=== PATIENT | male | born 1955 | race Caucasian/White ===

== ENCOUNTER 2018-10-23 12:45 | Emergency (ER) | payer MEDICAID, OTHER ==
[2018-10-23] MEDS ORDERED: HYDROcodone/Acetaminophen 5/325 mg Tablet ONE (13:51)
[2018-10-23] MEDS ORDERED: Triple Antibiotic Oint 1 GM Packet ONE (13:53)
--- NOTE | 2018-10-23 13:58 | RAD ---
LEFT ELBOW 4 VIEWS: HISTORY: Injury left elbow pain. FINDINGS: No acute fracture or dislocation is identified. Mild degenerative changes are present. POS: [facility]
== END 2018-10-23 14:25 | disposition home or self-care (01) ==
LOC: MADERS 12:45
DX: S50.02XA Contusion of left elbow, initial encounter (principal); E11.9 Type 2 diabetes mellitus without complications; I10 Essential (primary) hypertension; F17.220 Nicotine dependence, chewing tobacco, uncomplicated; W20.8XXA Other cause of strike by thrown, projected or falling object, initial encounter